=== PATIENT | female | born 1970 | race Caucasian/White ===

== ENCOUNTER 2021-02-26 21:32 | Emergency (ER) | payer SELFPAY ==
[~2021-02-26] VITALS: Ht 157.5 cm; Wt 61.2 kg
[2021-02-26] MEDS ORDERED: AMOCLA875 PO (22:10)
== END 2021-02-26 22:22 | disposition home or self-care (01) ==
LOC: ER 21:32
DX: K04.7 Periapical abscess without sinus (principal); Z88.5 Allergy status to narcotic agent; Z88.8 Allergy status to other drugs, medicaments and biological substances
CPT/HCPCS: 96372; 99282-25; A9270; J1885

== ENCOUNTER 2021-02-28 22:16 | Emergency (ER) | payer SELFPAY ==
[~2021-02-28] VITALS: Ht 157.5 cm; Wt 61.2 kg
[~2021-02-28 22:16] MED LIST: AMOCLA875 PO
== END 2021-02-28 23:45 | disposition home or self-care (01) ==
LOC: ER 22:16
DX: K04.7 Periapical abscess without sinus (principal); K02.9 Dental caries, unspecified; Z88.5 Allergy status to narcotic agent; Z88.8 Allergy status to other drugs, medicaments and biological substances
CPT/HCPCS: 99283; A9270